=== PATIENT | male | born 1990 | race African-American/Black ===

== ENCOUNTER 2023-01-30 23:25 | Emergency (ER) | payer OTHER ==
[~2023-01-30] VITALS: Ht 180.3 cm; Wt 75.3 kg
[2023-01-30] MEDS ORDERED: NS 1,000 ML IV SCH (23:50)
[2023-01-30] MEDS ORDERED: KETAMINE HCL 200MG/20ML VIAL IV ONE (23:50)
[2023-01-30 23:55] VITALS: TEMP 98.5
[2023-01-31] MEDS: propofoL 200 MG/20 ML VIAL IV.PROC PRN ×3 (00:01→00:04)
[2023-01-31 01:15] VITALS: BP 131/71; O2SAT 100
== END 2023-01-31 01:43 | disposition home or self-care (01) ==
LOC: M ED 23:25
DX: S43.015A Anterior dislocation of left humerus, initial encounter (principal); F17.200 Nicotine dependence, unspecified, uncomplicated